=== PATIENT | male | born 2000 | race Hispanic/Latino ===

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

== ENCOUNTER 2023-06-18 17:03 | Emergency (ER) | payer OTHER, SELFPAY ==
[2023-06-18] MEDS ORDERED: NA CHLORIDE 0.9% 1,000 ML ONE (17:13)
[2023-06-18] MEDS ORDERED: PROMETHAZINE INJ 25 MG/ML AMP ONE (17:13)
[2023-06-18] MEDS ORDERED: NA CHLORIDE 0.9% 50 ML ONE (17:13)
[2023-06-18 17:35] LABS: Absolute Eosinophils 0.3 K/uL (0-0.5); Absolute Lymphocytes (CBC) 2.7 K/uL (0.7-4.9); Absolute Monocytes 0.4 K/uL (0.1-1.3); Absolute Neutrophil 4.4 K/uL (1.8-8.0); Basophils % 0.6 % (0-1.3); Eosinophils % 4.4 % (0-4.4); Hematocrit 39.9 % (39.6-49.0); Hemoglobin 13.7 g/dL (13.6-17.9); Lymphocytes % 34.1 % (15.3-44.8); MCH 29.3 pg (27.0-35.0); MCHC 34.4 g/dL (32.0-36.0); MCV 85.4 fL (80-100); MPV 8.7 fL (7.6-11.3); Monocytes % 4.9 % (3.3-12.3); Nucleated Red Blood Cells % 0.1 % (0-0); Platelets 198 thou/uL (152-406); RBC Red Blood Cell Count 4.67 M/uL (4.33-5.43); Red Cell Distribution Width 13.9 % (12.1-15.2)
[2023-06-18 18:03] LABS: ALT/SGPT 77 U/L (16-61); AST/SGOT 51 U/L (15-37); Albumin 3.7 g/dL (3.4-5.0); Albumin/Globulin Ratio 1.1 (1.1-1.8); Alkaline Phosphatase 81 U/L (45-117); Anion Gap 10.4 mEq/L (5.0-15.0); BUN Blood Urea Nitrogen 18 mg/dL (7-18); Bicarbonate 25 mEq/L (21-32); Bilirubin Direct 0.4 mg/dL (0-0.2); Bilirubin Indirect, Calculated 1.8 mg/dL (0.2-0.8); Bilirubin Total 2.2 mg/dL (0.2-1.0); Globulin 3.5 g/dL (2.3-3.5); Glomerular Filtration Rate 102 ml/min (=/>90); Glucose Level 154 mg/dL (74-106); Potassium 3.4 mEq/L (3.5-5.1); Protein, Total 7.2 g/dL (6.4-8.2); Sodium Level 141 mEq/L (136-145)
[2023-06-18 18:08] LABS: PT Prothrombin Time 11.7 SECONDS (9.5-12.5); PTT, Activated Partial Thromb 26.2 SECONDS (24.3-36.9); Protime INR 1.07
--- NOTE | 2023-06-18 20:55 | ER ---
Nurse's Notes [facility] Name: Anand Horta Age: 22 yrs Sex: Male : 2000 Arrival Date: 06/18/2023 Time: 17:03 Bed 18 Private MD: Diagnosis: Poisoning by other drugs, medicaments and biological substances, accidental (unintentional) Presentation: 06/17 17:06 Chief complaint: EMS states: toned for OD/unresponsive, pt states he took 1 Percocet at iw unknown time, friends found him unresponsive and administered 4 mg Narcan IN [employer], pt was A\T\OX 3 upon EMS arrival , vomiting on scene, EMS gave a total of 8 mg Zofran IVP and 1 L NS. Coronavirus screen: At this time, the client does not indicate any symptoms associated with coronavirus-19. Ebola Screen: Patient negative for fever greater than or equal to 101.5 degrees Fahrenheit, and additional compatible Ebola Virus Disease symptoms Patient denies exposure to infectious person. Patient denies travel to an Ebola-affected area in the 21 days before illness onset. No symptoms or risks identified at this time. Initial Sepsis Screen: Does the patient meet any 2 criteria? No. Patient's initial sepsis screen is negative. Does the patient have a suspected source of infection? No. Patient's initial sepsis screen is negative. Risk Assessment: Do you want to hurt yourself or someone else? Patient reports no desire to harm self or others. Onset of symptoms was June 18, 2023. 17:06 Method Of Arrival: EMS: [facility] iw 17:06 Acuity: JADYN 3 iw Historical: - Allergies: 17:08 NSAIDS; iw - Home Meds: 17:08 None [Active]; iw - PMHx: 17:08 None; iw - PSHx: 17:08 None; iw - Immunization history:: Adult Immunizations not up to date. - Infectious Disease History:: Denies. - Social history:: Smoking status: Patient denies any tobacco usage or history of. Screenin:25 [facility] ED Fall Risk Assessment (Adult) History of falling in the last 3 months, tl4 including since admission No falls in past 3 months (0 pts) Confusion or Disorientation No (0 pts) Intoxicated or Sedated No (0 pts) Impaired Gait No (0 pts) Mobility Assist Device Used No (0 pt) Altered Elimination No (0 pt) Score/Fall Risk Level 0 - 2 = Low Risk Oriented to surroundings, Maintained a safe environment, Educated pt \T\ family on fall prevention, incl call for assistance when getting out of bed, Assessed \T\ reinforced patient's understanding of fall precautions, Hourly rounding (assess needs \T\ fall precautionary measures) done, Used ambulatory aids as needed (educated on \T\ assisted with), Used gait belt as appropriate. Abuse screen: Denies threats or abuse. Denies injuries from another. Nutritional screening: No deficits noted. Tuberculosis screening: No symptoms or risk factors identified. Assessment: 17:22 General: Appears in no apparent distress. Behavior is cooperative. Pain: Denies pain. tl4 Neuro: Level of Consciousness is awake, alert, obeys commands, Oriented to person, place, time, situation, Colleter are equal bilaterally Moves all extremities. Speech is normal, Facial symmetry appears normal. Cardiovascular: Capillary refill < 3 seconds Patient's skin is warm and dry. Respiratory: Airway is patent Respiratory effort is even, unlabored, Respiratory pattern is regular, symmetrical, Breath sounds are clear bilaterally. GI: Abd is soft and non tender Reports nausea, vomiting. : No signs and/or symptoms were reported regarding the genitourinary system. EENT: No signs and/or symptoms were reported regarding the EENT system. Derm: No signs and/or symptoms reported regarding the dermatologic system. Musculoskeletal: No signs and/or symptoms reported regarding the musculoskeletal system. 18:09 Reassessment: No changes from previously documented assessment. Patient and/or family tl4 updated on plan of care and expected duration. Pain level reassessed. Patient denies pain at this time. 19:06 Reassessment: Patient and/or family updated on plan of care and expected duration. Pain tl4 level reassessed. Patient is alert, oriented x 3, equal unlabored respirations, skin warm/dry/pink. Pt sleeping. Pt states he can not urinate yet. Will continue to monitor. 20:25 Reassessment: No changes from previously documented assessment. Patient and/or family tl4 updated on plan of care and expected duration. Pain level reassessed. Patient is alert, oriented x 3, equal unlabored respirations, skin warm/dry/pink. 21:23 Reassessment: No changes from previously documented assessment. Patient and/or family tl4 updated on plan of care and expected duration. Pain level reassessed. Patient is alert, oriented x 3, equal unlabored respirations, skin warm/dry/pink. Vital Signs: 17:06 BP 126 / 80; Pulse 105; Resp 18; Pulse Ox 100% on R/A; iw 17:24 BP 118 / 77; Pulse 100; Resp 20; Pulse Ox 100% on R/A; tl4 18:05 BP 111 / 80; Pulse 81; Resp 16; Pulse Ox 99% on R/A; Pain 0/10; tl4 18:30 BP 113 / 73; Pulse 86; Resp 15; Pulse Ox 97% on R/A; Pain 0/10; tl4 19:08 BP 113 / 68; Pulse 82; Resp 16; Pulse Ox 97% on R/A; tl4 20:24 BP 116 / 63; Pulse 89; Resp 15; Pulse Ox 98% on R/A; Pain 0/10; tl4 21:23 BP 114 / 63; Pulse 74; Resp 16; Temp 97.8(O); Pulse Ox 100% ; Pain 0/10; tl4 18:05 Pain Scale: Adult tl4 18:30 Pain Scale: Adult tl4 20:24 Pain Scale: Adult tl4 21:23 Pain Scale: Adult tl4 ED Course: 17:05 Patient arrived in ED. iw 17:07 Amy Maldonado FNP-C [facility] kb 17:07 Sajan Guerin MD is Attending Physician. kb 17:08 Triage completed. iw 17:08 Arm band placed on. iw 17:10 Rai Neves, FLORENTIN is Primary Nurse. tl4 17:15 Initial lab(s) drawn, by me, sent to lab. Maintain EMS IV. Dressing intact. Good blood iw return noted. Site clean \T\ dry. Gauge \T\ site: 18 LAC. 17:22 Acetaminophen Sent. tl4 17:22 Basic Metabolic Panel Sent. tl4 17:22 CBC with Diff Sent. tl4 17:22 Salicylate Sent. tl4 17:22 Ptt, Activated Sent. tl4 17:22 PT-INR Sent. tl4 17:22 Hepatic Function Sent. tl4 17:22 ETOH Level Sent. tl4 17:26 Patient has correct armband on for positive identification. Placed in gown. Bed in low tl4 position. Call light in reach. Side rails up X2. Provided Education on: ED process. Client placed on continuous cardiac and pulse oximetry monitoring. NIBP monitoring applied. radiation monitor on. Door closed. Noise minimized. Lights dimmed. Moved to private room. Warm blanket given. 17:26 No provider procedures requiring assistance completed. tl4 21:23 IV discontinued, intact, bleeding controlled, No redness/swelling at site. Pressure tl4 dressing applied. Administered Medications: 17:18 Drug: NS 0.9% IV 1000 ml IV at 1000 ml once Route: IV; Rate: 1000 ml; Site: left tl4 antecubital; Delivery: Primary tubing; 18:26 Follow up: Response: No adverse reaction; IV Status: Completed infusion; IV Intake: tl4 1000ml 17:21 Drug: Promethazine IVP 12.5 mg IVP once {Note: mixed in NS 50 mL .} Route: IVP; Infused tl4 Over: 15 mins; Site: left antecubital; 17:56 Follow up: Response: No adverse reaction; Nausea is decreased tl4 Medication: 17:25 VIS not applicable for this client. tl4 Intake: 18:26 IV: 1000ml; Total: 1000ml. tl4 Outcome: 20:54 Discharge ordered by MD. butcher 21:24 Discharged to home ambulatory, with family, tl4 21:24 Condition: stable 21:24 Discharge instructions given to patient, family, Instructed on discharge instructions, follow up and referral plans. Demonstrated understanding of instructions, follow-up care, 21:24 Patient left the ED. tl4 Signatures: Amy Maldonado, AYSE-C EARTH SCIENCE TEACHER-Salena Penn, RN RN Rai Neves RN RN tl4 Corrections: (The following items were deleted from the chart) 19:08 18:55 BP 113 / 73; Pulse 86bpm; Resp 15bpm; Pulse Ox 97% RA; Pain 0/10, Adult; tl4 tl4
--- NOTE | 2023-06-18 20:55 | EDPHYS ---
Physician Documentation [facility] Name: Anand Horta Age: 22 yrs Sex: Male : 2000 Arrival Date: 06/18/2023 Time: 17:03 Bed 18 Private MD: ED Physician Sajan Guerin HPI: 06/17 22:51 This 22 yrs old Male presents to ER via EMS with complaints of Overdose. kb 22:51 Pt is a 22 year old male who took one of his friend's percocets. EMS reports they were kb called for an unresponsive pt, pt was given OTC narcan 4mg prior to their arrival and he was awake, alert and oriented when they arrived on scene. EMS states pt has been A\\T\\Ox4 the whole time he has been in their care. . Historical: - Allergies: 17:08 NSAIDS; iw - Home Meds: 17:08 None [Active]; iw - PMHx: 17:08 None; iw - PSHx: 17:08 None; iw - Immunization history:: Adult Immunizations not up to date. - Infectious Disease History:: Denies. - Social history:: Smoking status: Patient denies any tobacco usage or history of. ROS: 18:36 Constitutional: As per HPI kb Exam: 18:36 Constitutional: This is a well developed, well nourished patient who is awake, alert, kb and in no acute distress. Head/Face: Normocephalic, atraumatic. ENT: Moist Mucous membranes Cardiovascular: Regular rate Respiratory: Respirations even and unlabored. No increased work of breathing. Talking in full sentences Abdomen/GI: Soft, non-tender. No distention Skin: Warm, dry with normal turgor. Normal color. MS/ Extremity: Pulses equal, no cyanosis. Neurovascular intact. Full, normal range of motion. Neuro: Awake and alert, GCS 15, oriented to person, place, time, and situation. Moves all extremities. Normal gait. 18:36 ECG was reviewed by the Attending Physician. kb Vital Signs: 17:06 BP 126 / 80; Pulse 105; Resp 18; Pulse Ox 100% on R/A; iw 17:24 BP 118 / 77; Pulse 100; Resp 20; Pulse Ox 100% on R/A; tl4 18:05 BP 111 / 80; Pulse 81; Resp 16; Pulse Ox 99% on R/A; Pain 0/10; tl4 18:30 BP 113 / 73; Pulse 86; Resp 15; Pulse Ox 97% on R/A; Pain 0/10; tl4 19:08 BP 113 / 68; Pulse 82; Resp 16; Pulse Ox 97% on R/A; tl4 20:24 BP 116 / 63; Pulse 89; Resp 15; Pulse Ox 98% on R/A; Pain 0/10; tl4 21:23 BP 114 / 63; Pulse 74; Resp 16; Temp 97.8(O); Pulse Ox 100% ; Pain 0/10; tl4 18:05 Pain Scale: Adult tl4 18:30 Pain Scale: Adult tl4 20:24 Pain Scale: Adult tl4 21:23 Pain Scale: Adult tl4 MDM: 17:07 Patient medically screened. kb 20:53 Data reviewed: vital signs, nurses notes. kb 20:55 Differential diagnosis: Ingestion/exposure to "percocet" over medication. kb 22:51 Historians other than the Patient: EMS: [facility]. Counseling: I had a detailed kb discussion with the patient and/or guardian regarding the historical points, exam findings, and any diagnostic results supporting the discharge/admit diagnosis, lab results, the need for outpatient follow up, a family practitioner, to return to the emergency department if symptoms worsen or persist or if there are any questions or concerns that arise at home. 22:53 ED course: Pt states he is feeling back to normal prior to discharge. tolerating po kb intake. Pt states he is never going to take percocet again. States he has a lot of plans for his future and doesn't want to do something that could indanger himself or his plans. 06/17 17:07 Order name: Acetaminophen; Complete Time: 18:16 kb 06/17 17:07 Order name: Basic Metabolic Panel; Complete Time: 18:16 kb 06/17 17:07 Order name: CBC with Diff; Complete Time: 17:37 kb 06/17 17:07 Order name: ETOH Level; Complete Time: 18:16 kb 06/17 17:07 Order name: Hepatic Function; Complete Time: 18:16 kb 06/17 17:07 Order name: PT-INR; Complete Time: 18:16 kb 06/17 17:07 Order name: Ptt, Activated; Complete Time: 18:16 kb 06/17 17:07 Order name: Salicylate; Complete Time: 18:16 kb 06/17 17:07 Order name: EKG; Complete Time: 17:08 kb 06/17 17:07 Order name: EKG - Nurse/Tech; Complete Time: 18:05 kb 06/17 17:07 Order name: IV Saline Lock; Complete Time: 17:22 kb 06/17 17:07 Order name: Labs collected and sent; Complete Time: 17:22 kb 06/17 20:53 Order name: PO challenge; Complete Time: 20:55 kb EC:36 Rate is 20 beats/min. Rhythm is regular. QRS [place] is Normal. MA interval is normal at kb 148 msec. QRS interval is normal at 90 msec. QT interval is normal at 467 msec. Administered Medications: 17:18 Drug: NS 0.9% IV 1000 ml IV at 1000 ml once Route: IV; Rate: 1000 ml; Site: left tl4 antecubital; Delivery: Primary tubing; 18:26 Follow up: Response: No adverse reaction; IV Status: Completed infusion; IV Intake: tl4 1000ml 17:21 Drug: Promethazine IVP 12.5 mg IVP once {Note: mixed in NS 50 mL .} Route: IVP; Infused tl4 Over: 15 mins; Site: left antecubital; 17:56 Follow up: Response: No adverse reaction; Nausea is decreased tl4 Disposition: 06/18 10:05 Co-signature as Attending Physician, Sajan Guerin MD I reviewed the patient's care rt provided by the Advanced Practice Provider and agree with the diagnosis and treatment plan. Disposition Summary: 06/18/23 20:54 Discharge Ordered Notes: Location: Home kb Condition: Stable kb Diagnosis - Poisoning by other drugs, medicaments and biological substances, accidental kb (unintentional) Followup: kb - With: Emergency Department - When: As needed - Reason: Worsening of condition Followup: kb - With: Private Physician - When: 2 - 3 days - Reason: Recheck today's complaints, Continuance of care, Re-evaluation by your physician Discharge Instructions: - Discharge Summary Sheet kb - Opioid Overdose kb Forms: - Medication Reconciliation Form kb - Thank You Letter kb - Antibiotic Education kb - Prescription Opioid Use kb - Patient Portal Instructions kb - Leadership Thank You Letter kb Signatures: Dispatcher [employer] Amy Lee, WEB PRODUCTION ARTIST-C WEB PRODUCTION ARTIST-Ckb Salena Jones, RN RN iw Sajan Guerin MD MD rt Rai Neves RN RN tl4 Corrections: (The following items were deleted from the chart) 06/17 18:54 17:07 Suicide Screening ([place]) ordered. kb tl4
[2023-06-18 21:40] VITALS: BP 114/63; TEMP 97.8; O2SAT 100
== END 2023-06-18 21:24 | disposition home or self-care (01) ==
LOC: ER 17:03
DX: T40.2X1A Poisoning by other opioids, accidental (unintentional), initial encounter (principal)
CPT/HCPCS: 36415; 80048; 80076; 80143; 80179; 82077; 85025; 85610; 85730; 93005; 96361; 96374; 99285; J2550; J7030